=== PATIENT | female | born 1995 | race Caucasian/White ===

== ENCOUNTER 2017-01-06 16:19 | Emergency (ER) | payer OTHER ==
[2017-01-06 16:27] VITALS: BP 125/75; PULSE 110; TEMP 99; BMI 19.8
--- NOTE | 2017-01-06 16:42 | PDOC ---
History of Present Illness - General Chief Complaint: Injury Stated Complaint: LFT WRIST INJURY Time Seen by Provider: 01/06/17 16:38 History Source: Patient Exam Limitations: No Limitations - History of Present Illness Initial Comments: 01/06/17 17:15 CHIEF COMPLAINT: fall, injury to the left wrist. HISTORY OF PRESENT ILLNESS: Patient is a 21 -year-old female was out last night , states that she was out drinking last night, fell a few times onto the left wrist, pain to the hand and left wrist. Pain with ROM, no deformity. No erythema, mild edema. Denies hitting her head, no other injury. PMH: Denies MEDS:None ALLERGIES: None REVIEW OF SYSTEMS: GENERAL/CONSTITUTIONAL: Awake alert and oriented HEAD, EYES, EARS, NOSE AND THROAT: No change in vision. No facial edema, no bruising. NO active bleeding. Nares intact. RESPIRATORY: No cough, wheezing, or hemoptysis. CARDIAC: Denies chest pain, no shortness of breathe. MUSCULOSKELETAL: No spinal point tenderness, decreased range of motion to left wrist associated pain. NO CVA tenderness. no lateral neck pain. GI/: Denies abdominal pain, no nausea or vomiting, no bloody stool, no Hematuria. SKIN : No erythema or bruising noted. No abrasion or lacerations. NEUROLOGIC: No loss of consciousness, no numbness or tingling. PHYSICAL EXAM: GENERAL: Awake and alert and oriented x3. CHEST: The lungs are clear without crackles, or wheezes. No subcutaneous emphysema. No crepitus. HEART: Heart is regular rhythm, with normal S1 and S2, no murmurs. MUSCULOSKELETAL: No spinal point tenderness. No bruising or erythema. Pelvis stable. EXTREMITIES: Extremities are normal. Guarding left wrist, decreased mobility, there is no erythema edema or deformity. SKIN: Without edema, erythema or bruising. No abrasions or lacerations. Past History - Past Medical History Allergies/Adverse Reactions: Allergies Allergy/AdvReac Type Severity Reaction Status Date / Time No Known Allergies Allergy Verified 01/06/17 16:27 Home Medications: Ambulatory Orders Ibuprofen [Motrin -] 400 mg PO QID #28 tablet 01/06/17 Psychiatric Problems: Yes (ADHD) Suicide Attempt (Hx): No - Immunization History Immunization Up to Date: Yes - Psycho/Social/Smoking Cessation Hx Anxiety: No Suicidal Ideation: No Smoking History: Current every day smoker Have you smoked in the past 12 months: Yes Number of Cigarettes Smoked Daily: 6 Information on smoking cessation initiated: Yes 'Breaking Loose' booklet given: 01/06/17 Hx Alcohol Use: Yes (SOCIAL) Drug/Substance Use Hx: No Substance Use Type: None *Physical Exam - Vital Signs Last Vital Signs Temp Pulse Resp BP Pulse Ox 99.0 F 110 H 20 125/75 99 01/06/17 16:24 01/06/17 16:24 01/06/17 16:24 01/06/17 16:24 01/06/17 16:24 ED Treatment Course - RADIOLOGY Radiology Studies Ordered: Category Date Time Status WRIST W/HAND-LEFT* [RAD] Stat Radiology 01/06/17 16:40 Ordered Medical Decision Making - Medical Decision Making 01/06/17 17:29 A/P: Injury to left wrist, urine sent wet read xray negative for acute fracture however based upon patient's pain level will place splint on Motrin 600 by mouth times one given I discussed the physical exam findings, ancillary test results and final diagnoses with the patient. I answered all of the patient's questions. The patient was satisfied with the care received and felt comfortable with the discharge plan and treatment plan. The patient will call orthopedic to arrange follow-up and will return to the Emergency Department with any new, persistent or worsening symptoms. *DC/Admit/Observation/Transfer Diagnosis at time of Disposition: Wrist sprain Qualifiers: Encounter type: initial encounter Laterality: left Qualified Code(s): S63.502A - Unspecified sprain of left wrist, initial encounter - Discharge Dispostion Disposition: HOME Condition at time of disposition: Good Admit: No - Prescriptions Prescriptions: Ibuprofen [Motrin -] 400 mg PO QID #28 tablet - Referrals Referrals: STAFF,NOT ON [Primary Care Provider] - Baoz Fuentes MD [Staff Physician] - - Patient Instructions Printed Discharge Instructions: Wrist Sprain Additional Instructions: 1. Please return to the emergency department with any redness, swelling, increased pain, or any other concerns. 2. Keep splint on. 3. Please follow up in the office of Dr. Fuentes within a week if pain persists. 4. No weightbearing 5. Ice and elevate when at rest. 6. Motrin for pain - Post Discharge Activity Work/School Note: Back to Work
[2017-01-06] MEDS ORDERED: IBUPROFEN 600 MG TABLET (FP) PO ONE ×2 (18:16→18:17)
== END 2017-01-06 18:31 | disposition home or self-care (01) ==
LOC: JERFT 16:19
PROC: 2W3DX1Z Immobilization of Left Lower Arm using Splint (ICD-10-PCS; principal; 2017-01-06)
DX: S63.502A Unspecified sprain of left wrist, initial encounter (principal); W18.39XA Other fall on same level, initial encounter; Y93.89 Activity, other specified; Y92.89 Other specified places as the place of occurrence of the external cause; Y99.8 Other external cause status
CPT/HCPCS: 29125; 73110-TC-LT; 73130-TC-LT; 84703; 99281-25